=== PATIENT | male | born 1960 | race Caucasian/White ===

== ENCOUNTER → 2018-06-13 | Outpatient (CLI) | payer OTHER ==
[~2018-06-13] MED LIST: CHOL200074 PO; MULT-642 PO; OMEG1CAP24 PO; PROP80CA3 PO
[2018-06-13 15:12] LABS: MICROSCOPIC NOT IND
[2018-06-13 15:15] LABS: CULTURE INDICATED? NO
[2018-06-13 15:19] LABS: BASOPHILS # (AUTO) 0.02 x10^3/uL (0-0.1); BASOPHILS % (AUTO) 0 % (0-1); EOSINOPHILS # (AUTO) 0.14 x10^3/uL (0-0.4); EOSINOPHILS % (AUTO) 3 % (1-7); LYMPHOCYTES # (AUTO) 1.53 x10^3/uL (1-3.4); LYMPHOCYTES % (AUTO) 30 % (22-44); MD NO; MEAN CORPUSCULAR HGB CONC 33.5 g/dL (33.2-36.2); MEAN CORPUSCULAR VOLUME 89.6 fL (81-97); MEAN PLATELET VOLUME 9.7 fL (7.4-10.4); MONOCYTES # (AUTO) 0.48 x10^3/uL (0.2-0.8); MONOCYTES % (AUTO) 9 % (2-9); NEUTROPHILS # (AUTO) 2.94 x10^3/uL (1.8-6.8); NEUTROPHILS % (AUTO) 58 % (42-75); PLATELET COUNT 188 x10^3/uL (130-400); RED BLOOD COUNT 5.11 x10^6/uL (4.38-5.82); RED CELL DISTRIBUTION WIDTH 13.8 % (9.4-14.8)
[2018-06-13 15:28] LABS: INTERNATIONAL NORMALIZED RATIO 1.08 (0.93-1.1); PROTHROMBIN TIME 11.4 Seconds (9.6-11.5)
[2018-06-13 15:30] LABS: ANION GAP 8 mmol/L (5-15); CHLORIDE 109 mmol/L (98-107); CREATININE 0.85 mg/dL (0.7-1.3)
[2018-06-13 15:45] LABS: HEMOGLOBIN A1C 5.9 % (4.2-6.3)
== END | disposition home or self-care (01) ==
LOC: STAR 14:01
PROVIDERS: ATTEND Orthopaedic Surgery
DX: Z01.818 Encounter for other preprocedural examination (principal); M17.0 Bilateral primary osteoarthritis of knee
CPT/HCPCS: 36415; 80048; 81003; 83036; 85025; 85610; 85730; 87081; 87806; 93005; G0475

== ENCOUNTER 2018-06-18 06:42 | Observation (INO) | payer OTHER ==
[2018-06-13 14:32] VITALS: BP 120/79
[~2018-06-18] VITALS: Ht 190.5 cm; Wt 121.9 kg
[2018-06-18] MEDS ORDERED: LACTATED RINGERS 1,000 ML IV SCH (07:23)
[2018-06-18] MEDS ORDERED: ACETAMINOPHEN 500 MG TABLET PO ONE (07:30)
[2018-06-18] MEDS ORDERED: GABAPENTIN 300 MG CAPSULE PO ONE (07:30)
[2018-06-18] MEDS ORDERED: TRANEXAMIC ACID 100 MG/ML, 10ML ONE ×4 (07:58)
[2018-06-18] MEDS ORDERED: SODIUM CHLORIDE 0.9% 50 ML ONE (07:58)
[2018-06-18] MEDS ORDERED: ROPIvacaine/PF 0.2%, 20 ML ONE (07:58)
[2018-06-18] MEDS ORDERED: VANCOMYCIN 1,000 MG ONE (07:58)
[2018-06-18] MEDS ORDERED: KETOROLAC 60 MG/2 ML ONE (07:59)
[2018-06-18] MEDS ORDERED: FENTANYL PF 250 MCG/5ML ONE (08:08)
[2018-06-18] MEDS ORDERED: MIDAZOLAM 1 MG/ML, 2ML ONE (08:08)
[2018-06-18] MEDS ORDERED: SCOPOLAMINE PATCH, 1.5MG PATCH.TD72 TD ONE ×2 (08:15→08:30)
[2018-06-18] MEDS ORDERED: EPINEPHRINE 1 MG/ML, 1ML ONE (08:31)
[2018-06-18] MEDS ORDERED: SENNA/DOCUSATE TABLET PO PRN (09:00)
[2018-06-18] MEDS ORDERED: PROMETHAZINE 25 MG/ML, 1ML IM PRN (09:00)
[2018-06-18] MEDS ORDERED: PROMETHAZINE 12.5 MG SUPP PR PRN (09:00)
[2018-06-18] MEDS: DOCUSATE 100 MG CAPSULE PO SCH ×2 (09:00→21:07)
[2018-06-18] MEDS ORDERED: TRANEXAMIC ACID 1,000 MG in SODIUM CHLORIDE 0.9% 100 ML IVPB ONE (09:00)
[2018-06-18] MEDS ORDERED: HYDROmorphone 1 MG/ML, 1ML IV PRN (09:00)
[2018-06-18] MEDS ORDERED: DIAZEPAM 5 MG TABLET PO PRN (09:00)
[2018-06-18] MEDS ORDERED: DIPHENHYDRAMINE 50 MG CAPSULE PO PRN (09:00)
[2018-06-18] MEDS ORDERED: ONDANSETRON 4 MG TABLET PO PRN (09:00)
[2018-06-18] MEDS ORDERED: ONDANSETRON 2MG/ML, 2ML IV PRN ×2 (09:00→11:00)
[2018-06-18] MEDS ORDERED: MAGNESIUM HYDROXIDE 8%, 30ML UDC PO PRN (09:00)
[2018-06-18] MEDS ORDERED: ACETAMINOPHEN 325 MG TABLET PO PRN (09:00)
[2018-06-18] MEDS: TAMSULOSIN 0.4 MG CAP.ER.24H PO SCH (09:00)
[2018-06-18] MEDS ORDERED: ALUMINUM/MAG/SIMETHICONE 30 ML UDC PO PRN (09:00)
[2018-06-18] MEDS ORDERED: ONDANSETRON 2MG/ML, 2ML ONE (09:28)
[2018-06-18] MEDS ORDERED: CEFAZOLIN 1,000 MG ONE (09:28)
[2018-06-18] MEDS ORDERED: PROPOFOL 10 MG/ML, 20ML ONE (09:28)
[2018-06-18] MEDS ORDERED: FENTANYL PF 100 MCG/2ML ONE (10:56)
[2018-06-18] MEDS ORDERED: HYDROmorphone 1 MG/ML, 1ML ONE (10:56)
[2018-06-18] MEDS ORDERED: OXYcodone 5 MG/5 ML ORAL.SOL UDC ONE (10:57)
[2018-06-18] MEDS: FENTANYL PF 100 MCG/2ML IV PRN ×2 (10:59→11:15)
[2018-06-18] MEDS ORDERED: MEPERIDINE/PF 25MG/0.5ML IVPush PRN (11:00)
[2018-06-18] MEDS ORDERED: PROMETHAZINE 25 MG/ML, 1ML IV PRN (11:00)
[2018-06-18] MEDS ORDERED: LORazepam 2 MG/ML, 1ML IVPush PRN (11:00)
[2018-06-18] MEDS ORDERED: ONDANSETRON ODT 8 MG PO PRN (11:00)
[2018-06-18] MEDS ORDERED: OXYcodone 5 MG/5 ML ORAL.SOL UDC PO PRN (11:00)
[2018-06-18] MEDS ORDERED: METOPROLOL 1 MG/ML, 5ML IV PRN (11:00)
[2018-06-18] MEDS ORDERED: LABETALOL 5MG/ML, 20ML IV PRN (11:00)
[2018-06-18] MEDS ORDERED: DIAZEPAM 5 MG/ML, 2ML IVPush PRN (11:00)
[2018-06-18] MEDS: HYDROmorphone 2 MG/ML, 1ML IVPush PRN ×2 (11:05→11:24)
[2018-06-18 12:14] VITALS: BP 120/89
[2018-06-18] MEDS: D5%-0.45NACL+KCL 20MEQ 1,000 ML IV SCH ×2 (12:59→22:00)
[2018-06-18 13:00] VITALS: BP 119/80
[2018-06-18] MEDS: ASPIRIN 81 MG TABLET EC PO SCH (18:12)
[2018-06-18] MEDS: CEFAZOLIN PMX 1GM/50ML 50 ML IVPB SCH (18:13)
[2018-06-18 19:55] VITALS: BP 115/73
[2018-06-19 00:18] VITALS: BP 96/66
[2018-06-19] MEDS: D5%-0.45NACL+KCL 20MEQ 1,000 ML IV SCH (00:59)
[2018-06-19] MEDS: CEFAZOLIN PMX 1GM/50ML 50 ML IVPB SCH (01:42)
[2018-06-19 04:26] VITALS: BP 110/62
[2018-06-19] MEDS: ASPIRIN 81 MG TABLET EC PO SCH (05:10)
[2018-06-19] MEDS ORDERED: DEXAMETHASONE 4 MG/ML, 1ML IVPush SCH (06:00)
[2018-06-19] MEDS: OXYcodone IR 5MG TABLET PO PRN ×2 (08:06→10:52)
[2018-06-19 08:14] VITALS: BP 122/70
[2018-06-19] MEDS: DOCUSATE 100 MG CAPSULE PO SCH (08:16)
[2018-06-19] MEDS: TAMSULOSIN 0.4 MG CAP.ER.24H PO SCH (08:16)
[2018-06-19] MEDS ORDERED: ASPI81TA45 PO (08:49)
[2018-06-19] MEDS ORDERED: KETOROLAC 30 MG/1 ML IV SCH (09:00)
[2018-06-19] MEDS ORDERED: PROPRANOLOl 80 MG CAP.SA.24H PO SCH (09:00)
== END 2018-06-19 11:15 | disposition home or self-care (01) ==
LOC: OUT 06:42 → ORIP 08:51 → 4NOR 12:01 → DCLOUNGE 06-19 11:03
PROVIDERS: ADMIT Orthopaedic Surgery; ATTEND Orthopaedic Surgery
DX: M17.11 Unilateral primary osteoarthritis, right knee (principal); Z79.899 Other long term (current) drug therapy
CPT/HCPCS: 27447; 36415; 73560; 85014; 85018; 96365; 96366; 96375; 97116; 97150; 97161; 97165; C1713; C1776; G0378; J0171; J0690; J1100; J1170; J1885; J2250; J2405; J2704; J2795; J3010; J3480; J7120; J3370